=== PATIENT | male | born 1990 | race Caucasian/White ===

== ENCOUNTER 2016-06-26 20:23 | Emergency (ER) | payer SELFPAY ==
[~2016-06-26] VITALS: Ht 188 cm; Wt 70.0 kg
[~2016-06-26 20:23] MED LIST: ZOFR4TAB3 PO
[2016-06-26 20:25] VITALS: BP 113/70; PULSE 72; RESP 18; TEMP 98.6; O2SAT 97
[2016-06-26] MEDS ORDERED: SODIUM CHLOR 0.9% 1000 ML INJ 1,000 ML IV SCH (20:48)
[2016-06-26 20:51] VITALS: BP 123/74; PULSE 66; RESP 20; O2SAT 100
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
[2016-06-26] MEDS ORDERED: SODIUM CHLORIDE 0.9% FLUSH 10 ML FLUSH IVF PRN (21:00)
[2016-06-26 21:08] LABS: BASOPHIL % 0.4 % (0.0-2.0); EOSINOPHIL # 0.1 TH/MM3 (0-0.4); EOSINOPHIL % 1.3 % (0.0-4.0); HEMATOCRIT 47.3 % (39.0-51.0); HEMO FLAGS DIFF FINAL; LYMPH % 23.4 % (9.0-44.0); MEAN CELL VOLUME 87.2 FL (80.0-100.0); MEAN CORPUSCULAR HEMOGLOBIN 30.3 PG (27.0-34.0); MEAN CORPUSCULAR HGB CONC 34.8 % (32.0-36.0); MONO % 5.3 % (0.0-8.0); NEUT % 69.6 % (16.0-70.0); PLATELET COUNT 224 TH/MM3 (150-450); RED BLOOD COUNT 5.43 MIL/MM3 (4.50-5.90); RED CELL DISTRIBUTION WIDTH 13.1 % (11.6-17.2); WHITE BLOOD COUNT 8.6 TH/MM3 (4.0-11.0)
[2016-06-26 21:30] LABS: APTT (PATIENT) 28.9 SEC (24.3-30.1); PROTHROMBIN TIME - PATIENT 11.6 SEC (9.8-11.6)
[2016-06-26 21:46] LABS: ANION GAP 7 MEQ/L (5-15); BICARBONATE 29.3 MEQ/L (21.0-32.0); BLOOD UREA NITROGEN 21 MG/DL (7-18); CHLORIDE 104 MEQ/L (98-107); GLOMERULAR FILTRATION RATE 76 ML/MIN (>89); MAGNESIUM 2.5 MG/DL (1.5-2.5); POTASSIUM 4.1 MEQ/L (3.5-5.1); SODIUM (NA) 140 MEQ/L (136-145)
[2016-06-26 21:51] LABS: CREATINE KINASE 132 U/L (39-308)
--- NOTE | 2016-06-26 21:59 | RADRPT ---
EXAM DATE/TIME: 06/26/2016 21:16 [facility] COMPARISON: CHEST SINGLE AP, August 08, 2014, 8:03. CHEST PA & LAT, April 15, 2015, 3:48. CHEST SINGLE AP, [facility] er 2014, 17:16. INDICATIONS : Chest Pain MEDICAL HISTORY : None. SURGICAL HISTORY : Appendectomy. ENCOUNTER: Initial ACUITY: 1 day PAIN SCORE: 6/10 LOCATION: Bilateral chest FINDINGS: A single view of the chest demonstrates the lungs to be symmetrically aerated without evidence of mas s, infiltrate or effusion. The cardiomediastinal contours are unremarkable. Osseous structures are intact. CONCLUSION: No acute disease. Cesario Klein MD on June 26, 2016 at 21:53 Board Certified Radiologist. This report was verified electronically.
[2016-06-26 22:00] VITALS: BP 101/58; PULSE 49; RESP 16; O2SAT 96
[2016-06-26 22:03] LABS: CKMB LESS THAN 0.5 NG/ML (0.5-3.6)
--- NOTE | 2016-06-26 22:09 | PD ---
Data Data Last Documented VS Vital Signs Date Time Temp Pulse Resp B/P Pulse Ox O2 Delivery O2 Flow Rate FiO2 06/26/16 23:25 52 16 96/60 100 06/26/16 22:00 Room Air 06/26/16 20:25 98.6 Orders Electrocardiogram (06/26/16 20:48) Basic Metabolic Panel (Bmp) (06/26/16 20:48) Ckmb (Isoenzyme) Profile (06/26/16 20:48) Complete Blood Count With Diff (06/26/16 20:48) D-Dimer (06/26/16 20:48) Magnesium (Mg) (06/26/16 20:48) Prothrombin Time / Inr (Pt) (06/26/16 20:48) Act Partial Throm Time (Ptt) (06/26/16 20:48) Troponin I (06/26/16 20:48) Chest, Single Ap (06/26/16 20:48) Ecg Monitoring (06/26/16 20:48) Bilateral Bp Monitoring (06/26/16 20:48) Iv Access Insert/Monitor (06/26/16 20:48) Oximetry (06/26/16 20:48) Oxygen Administration (06/26/16 20:48) Sodium Chloride 0.9% Flush (Ns Flush) (06/26/16 21:00) Ct Brain W/O Iv Contrast(Rout) (06/26/16 ) Sodium Chlor 0.9% 1000 Ml Inj (Ns 1000 M (06/26/16 20:48) CKMB (06/26/16 20:50) CKMB% (06/26/16 20:50) Mandatory Outpatient Referral (06/26/16 23:23) Labs Laboratory Tests Test 06/26/16 20:50 White Blood Count 8.6 TH/MM3 Red Blood Count 5.43 MIL/MM3 Hemoglobin 16.4 GM/DL Hematocrit 47.3 % Mean Corpuscular Volume 87.2 FL Mean Corpuscular Hemoglobin 30.3 PG Mean Corpuscular Hemoglobin 34.8 % Concent Red Cell Distribution Width 13.1 % Platelet Count 224 TH/MM3 Mean Platelet Volume 8.7 FL Neutrophils (%) (Auto) 69.6 % Lymphocytes (%) (Auto) 23.4 % Monocytes (%) (Auto) 5.3 % Eosinophils (%) (Auto) 1.3 % Basophils (%) (Auto) 0.4 % Neutrophils # (Auto) 6.0 TH/MM3 Lymphocytes # (Auto) 2.0 TH/MM3 Monocytes # (Auto) 0.5 TH/MM3 Eosinophils # (Auto) 0.1 TH/MM3 Basophils # (Auto) 0.0 TH/MM3 CBC Comment DIFF FINAL Differential Comment Prothrombin Time 11.6 SEC Prothromb Time International 1.0 RATIO Ratio Activated Partial 28.9 SEC Thromboplast Time D-Dimer Quantitative (PE/DVT) 0.26 MG/L FEU Sodium Level 140 MEQ/L Potassium Level 4.1 MEQ/L Chloride Level 104 MEQ/L Carbon Dioxide Level 29.3 MEQ/L Anion Gap 7 MEQ/L Blood Urea Nitrogen 21 MG/DL Creatinine 1.16 MG/DL Estimat Glomerular Filtration 76 ML/MIN Rate Random Glucose 126 MG/DL Calcium Level 9.4 MG/DL Magnesium Level 2.5 MG/DL Total Creatine Kinase 132 U/L Creatine Kinase MB LESS THAN 0.5 NG/ML Troponin I LESS THAN 0.02 NG/ML [facility] Medical Record Reviewed: Yes Supervised Visit with LUKAS: Yes Narrative Course I, Dr. Briceno, have reviewed the advance practice practitioner's documentation and am in agreement, met with the patient face to face, made the diagnosis, and the medical decision making was done by me. *My assessment and Findings: CBC & BMP Diagram 06/26/16 20:50 Troponin less than 0.02 D-Dimer Quant 0.26 EKG: Sinus, rate 63, no preexcitation morphology, no ischemic injury pattern CXR: NACPD Bradycardia runs to 45 in ER, sinus. Mandatory cardiology order placed with which patient agrees to follow up. Diagnosis Primary Impression: Syncope Qualified Code: R55 - Syncope, unspecified syncope type Referrals: Tammy Dye MD 2 days [facility] 2 days Additional Instruction: You have a choice when it comes to health care, and we are glad that you chose [facility]. Hopefully, we have met your expectations on today's visit. You are welcome to return to [facility] at any time, as we are committed to meeting the health care needs of our community. Med/Other Pt SpecificInfo: No Change to Meds Scripts No Active Prescriptions or Reported Meds Disposition: 01 DISCHARGE HOME Condition: Stable Jonathan Bricenoel C. MD June 26, 2016 22:09
--- NOTE | 2016-06-26 23:07 | RADRPT ---
EXAM DATE/TIME: 06/26/2016 22:21 [facility] COMPARISON: No previous studies available for comparison. INDICATIONS : Dizziness. RADIATION DOSE: 43.72 CTDIvol (mGy) MEDICAL HISTORY : Renal failure. SURGICAL HISTORY : Appendectomy. ENCOUNTER: Initial ACUITY: 1 day PAIN SCALE: 0/10 LOCATION: cranial TECHNIQUE: Multiple contiguous axial images were obtained of the head. Using automated exposure control and adj ustment of the mA and/or kV according to patient size, radiation dose was kept as low as reasonably a chievable to obtain optimal diagnostic quality images. FINDINGS: CEREBRUM: The ventricles are normal for age. No evidence of midline shift, mass lesion, hemorrhage or acute in farction. No extra-axial fluid collections are seen. 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 POSTERIOR FOSSA: The cerebellum and brainstem are intact. The 4th ventricle is midline. The cerebellopontine angle i s unremarkable. EXTRACRANIAL: The visualized portion of the orbits is intact. SKULL: The calvaria is intact. No evidence of skull fracture. CONCLUSION: Normal examination. Cesario Klein MD on June 26, 2016 at 23:04 Board Certified Radiologist. This report was verified electronically.
[2016-06-26 23:25] VITALS: BP 96/60
--- NOTE | 2016-06-27 17:01 | EKG ---
Date Performed: 06/26/2016 Time Performed: 20:52:08 PTAGE: 25 years EKG: Sinus rhythm NORMAL ECG PREVIOUS TRACING : 01/25/2015 16.45 Compared to prior tracing no significant change DOCTOR: Tammy Dye Interpretating Date/Time 06/27/2016 16:59:46
== END 2016-06-26 23:31 | disposition home or self-care (01) ==
LOC: NEPC 20:23
DX: R55 Syncope and collapse (principal); R07.9 Chest pain, unspecified; F17.200 Nicotine dependence, unspecified, uncomplicated; Z87.448 Personal history of other diseases of urinary system
CPT/HCPCS: 70450; 71010; 80048; 82550; 82552; 83735; 84484; 85025; 85379; 85610; 85730; 93005; 96360; 99285; J7030

== ENCOUNTER 2017-05-31 00:39 | Emergency (ER) | payer OTHER ==
[~2017-05-31] VITALS: Ht 177.8 cm; Wt 70.0 kg
[2017-05-31 00:45] VITALS: BP 120/71; PULSE 72; RESP 16; TEMP 98.5; O2SAT 99
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
[2017-05-31] MEDS ORDERED: IBUP-232 PO (01:48)
== END 2017-05-31 02:15 | disposition home or self-care (01) ==
LOC: NEPC 00:39
DX: S09.90XA Unspecified injury of head, initial encounter (principal); S16.1XXA Strain of muscle, fascia and tendon at neck level, initial encounter; S20.212A Contusion of left front wall of thorax, initial encounter; F17.200 Nicotine dependence, unspecified, uncomplicated; V49.9XXA Car occupant (driver) (passenger) injured in unspecified traffic accident, initial encounter
CPT/HCPCS: 70450; 71250; 72125